=== PATIENT | male | born 1955 | race Caucasian/White ===

== ENCOUNTER → 2016-11-03 | Outpatient (CLI) | payer OTHER ==
[~2016-11-03] MED LIST: ALL300 PO; ALLO300T2 PO; ATEN50TA8 PO; CANA1TAB3 PO; FENO160T PO; GLYB-236 PO; INSU3INJ3 SC; INSUINJ12 INJ; LISI-725 PO; LSN20 PO; NRN600 PO; NTRGSL/4 UT; OMEGCAP2 PO; SIMV40TA2 PO; TNR50 PO; XRL15 PO; XRL20 PO; ZCR40 PO
--- NOTE | 2016-11-03 10:47 | DIAGNOSTIC IMAGING REPORT ---
ULTRASOUND RIGHT VENOUS DOPP LOWER EXT UNILAT CLINICAL HISTORY: Thrombosis of the right lower extremity COMPARISON STUDY: 08/21/2015 FINDINGS: No acute intraluminal thrombus was visualized. There are several areas of incomplete compressibility, most notably at the level of the popliteal vein. The findings are consistent with chronic change. There have been further improvement compared the preceding study. IMPRESSION: 1. No evidence of acute right lower extremity DVT 2. Resolving chronic changes within the deep veins of the right leg. Electronically signed by: Drake Mak M.D. 11/03/2016 10:46 AM Dictated Date/Time: 11/03/2016 10:43 AM
--- NOTE | 2016-11-03 10:57 | DIAGNOSTIC IMAGING REPORT ---
Arterial Doppler right leg ART DOP DUPLEX LW EXT UNI CLINICAL HISTORY: - Embolus TECHNIQUE: Arterial Doppler COMPARISON STUDY: 10/17/2015 FINDINGS: Normal by or triphasic waveforms bilaterally. Ankle brachial indices at all sites are 1.0 or greater IMPRESSION: Normal study Electronically signed by: John Handley M.D. 11/03/2016 10:56 AM Dictated Date/Time: 11/03/2016 10:43 AM
== END | disposition home or self-care (01) ==
LOC: C.ULTR 09:03
PROVIDERS: ATTEND Family Medicine
DX: I82.4Z1 Acute embolism and thrombosis of unspecified deep veins of right distal lower extremity (principal)

== ENCOUNTER 2017-02-09 17:40 | Emergency (ER) | payer OTHER ==
[~2017-02-09] VITALS: Ht 185.4 cm; Wt 122.7 kg
[~2017-02-09 17:40] MED LIST changes: -ALL300 PO; -INSU3INJ3 SC; -LSN20 PO; -NRN600 PO; -TNR50 PO; -XRL20 PO; -ZCR40 PO
[2017-02-09 17:43] VITALS: TEMP 36.7; Ht 185.4 cm; Wt 122.7 kg
[2017-02-09] MEDS ORDERED: TNR50 PO (18:43)
[2017-02-09] MEDS ORDERED: XRL20 PO (18:43)
[2017-02-09] MEDS ORDERED: ALL300 PO (18:43)
[2017-02-09] MEDS ORDERED: NRN600 PO (18:43)
[2017-02-09] MEDS ORDERED: ZCR40 PO (18:43)
[2017-02-09] MEDS ORDERED: LSN20 PO (18:43)
[2017-02-09] MEDS ORDERED: INSU3INJ3 SC (18:43)
--- NOTE | 2017-02-09 18:51 | DIAGNOSTIC IMAGING REPORT ---
LEFT FOOT MIN 3 VIEWS ROUTINE CLINICAL HISTORY: L foot pain pain COMPARISON: None. DISCUSSION: Moderate degenerative change. Heel spur. Cortical margins are intact. There is no evidence for soft tissue swelling. IMPRESSION: Moderate degenerative change. No acute bony pathology. Heel spur. The above report was generated using voice recognition software. It may contain grammatical, syntax or spelling errors. Electronically signed by: John Handley M.D. 02/09/2017 6:50 PM Dictated Date/Time: 02/09/2017 6:49 PM
--- NOTE | 2017-02-09 19:09 | EMERGENCY ROOM VISIT NOTE ---
History Report prepared by Dk: Mckenzie Escobar Under the Supervision of: Dr. Dara Rowland M.D. First contact with patient: 18:02 Chief Complaint: TOE PAIN, INJURY Stated Complaint: TOES TURNING BLACK History of Present Illness The patient is a 61 year old male who presents to the Emergency Room with complaints of worsening left great toe pain since this morning. The patient has a history of diabetes and diabetic neuropathy. He states that he has had chronic burning and numbness in his toes for the past couple of years. This morning the patient developed increased pain in his left great toe. He denies any trauma or injury to the foot. He has some bruising around the area. The patient rates his pain as a 5/10 in severity. He denies any fevers. 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 Source of History: patient Onset: this morning Position: toe(s) Symptom Intensity: 5/10 Quality: burning Timing: worsening Associated Symptoms: + numbness, No fevers Note: Pt denies trauma or injury. Review of Systems See HPI for pertinent positives & negatives. A total of 10 systems reviewed and were otherwise negative. Past Medical & Surgical Medical Problems: (1) DVT (deep venous thrombosis) Family History No significant family history Social History Smoking Status: Former Smoker Drug Use: none Marital Status: single Housing Status: lives with significant other Occupation Status: disabled Current/Historical Medications Scheduled Allopurinol (Allopurinol), 300 MG PO QAM Atenolol (Atenolol), 50 MG PO QAM Canagliflozin (Invokana), 300 MG PO QAM Fenofibrate (Tricor), 160 MG PO QAM Gabapentin (Gabapentin), 600 MG PO BID Glyburide-Metformin (Glyburide/Metformin Hcl), 2 TABS PO BID Insulin Detemir (Levemir Flextouch), 70 UNITS SC BID Lisinopril (Lisinopril), 20 MG PO QPM [place]-3 Fatty Acids (Fish Oil), 1 CAP PO DAILY Rivaroxaban (Xarelto), 20 MG PO DAILY Simvastatin (Simvastatin), 40 MG PO QPM Scheduled PRN Nitroglycerin (Nitrostat), 0.4 MG UT UD PRN for Chest Pain Allergies Coded Allergies: Azithromycin (Verified Allergy, Unknown, HYPERTENSION, RESPIRATORY DISTRESS, 08/21/15) Iodinated Diagnostic Agents (Verified Allergy, Unknown, SKIN COLD, FAINTING, 08/21/15) Penicillins (Verified Allergy, Unknown, HYPERTENSION, SHAKING,HIVES, ) Niacin (Verified Adverse Reaction, Unknown, NOSE BLEED, 08/21/15) Physical Exam Vital Signs Date Time Temp Pulse Resp B/P (MAP) Pulse Ox O2 Delivery O2 Flow Rate FiO2 02/09/17 20:45 85 20 135/78 96 Room Air 02/09/17 20:10 91 22 137/78 95 Room Air 02/09/17 20:09 94 22 137/78 95 Room Air 02/09/17 19:25 91 02/09/17 17:43 36.7 86 18 195/101 96 Room Air Physical Exam Vital signs reviewed. General: Chronically ill-appearing 61 year old male, in no significant distress. HEENT: No scleral icterus, PERRLA, neck supple. Atraumatic. Cardiovascular: Regular rate and rhythm, no extra sounds. Pulmonary: Clear to auscultation bilaterally, normal work of breathing. Abdomen: Obese, soft, nontender, nondistended, positive bowel sounds. Musculoskeletal: Atraumatic, no peripheral edema. Ecchymosis over the dorsum of the left foot over the 2nd and 3rd metatarsals. Neurologic: Patient awake alert and oriented x 3, full strength in all 4 extremities. Cranial nerves 2 through 12 grossly intact. Skin: Warm, dry, no rash Medical Decision & Procedures ER Provider Diagnostic Interpretation: Radiology results as stated below per my review and radiologist interpretation: LEFT FOOT MIN 3 VIEWS ROUTINE CLINICAL HISTORY: L foot pain pain COMPARISON: None. DISCUSSION: Moderate degenerative change. Heel spur. Cortical margins are intact. There is no evidence for soft tissue swelling. IMPRESSION: Moderate degenerative change. No acute bony pathology. Heel spur. The above report was generated using voice recognition software. It may contain grammatical, syntax or spelling errors. Electronically signed by: John Handley M.D. 02/09/2017 6:50 PM Dictated Date/Time: 02/09/2017 6:49 PM Laboratory Results 02/09/17 19:15 Red Blood Count 5.54, Mean Corpuscular Volume 90.3, Mean Corpuscular Hemoglobin 31.6, Mean Corpuscular Hemoglobin Concent 35.0, Mean Platelet Volume 9.9, Neutrophils (%) (Auto) 66.4, Lymphocytes (%) (Auto) 22.7, Monocytes (%) (Auto) 8.4, Eosinophils (%) (Auto) 1.7, Basophils (%) (Auto) 0.6, Neutrophils # (Auto) 4.27, Lymphocytes # (Auto) 1.46, Monocytes # (Auto) 0.54, Eosinophils # (Auto) 0.11, Basophils # (Auto) 0.04 02/09/17 19:15 Test 02/09/17 19:15 02/09/17 19:47 White Blood Count 6.43 K/uL (4.8-10.8) Red Blood Count 5.54 M/uL (4.7-6.1) Hemoglobin 17.5 g/dL (14.0-18.0) Hematocrit 50.0 % (42-52) Mean Corpuscular Volume 90.3 fL (80-100) Mean Corpuscular Hemoglobin 31.6 pg (25-34) Mean Corpuscular Hemoglobin Concent 35.0 g/dl (32-36) Platelet Count 136 K/uL (130-400) Mean Platelet Volume 9.9 fL (7.4-10.4) Neutrophils (%) (Auto) 66.4 % Lymphocytes (%) (Auto) 22.7 % Monocytes (%) (Auto) 8.4 % Eosinophils (%) (Auto) 1.7 % Basophils (%) (Auto) 0.6 % Neutrophils # (Auto) 4.27 K/uL (1.4-6.5) Lymphocytes # (Auto) 1.46 K/uL (1.2-3.4) Monocytes # (Auto) 0.54 K/uL (0.11-0.59) Eosinophils # (Auto) 0.11 K/uL (0-0.5) Basophils # (Auto) 0.04 K/uL (0-0.2) RDW Standard Deviation 43.7 fL (36.4-46.3) RDW Coefficient of Variation 13.3 % (11.5-14.5) Immature Granulocyte % (Auto) 0.2 % Immature Granulocyte # (Auto) 0.01 K/uL (0.00-0.02) Erythrocyte Sedimentation Rate 16 mm/hr (0-14) Anion Gap 9.0 mmol/L (3-11) Est Creatinine Clear Calc Drug Dose 118.1 ml/min Estimated GFR () 106.2 Estimated GFR (Non- 91.6 BUN/Creatinine Ratio 12.8 (10-20) Calcium Level 10.1 mg/dl (8.5-10.1) Total Bilirubin 0.5 mg/dl (0.2-1) Direct Bilirubin 0.1 mg/dl (0-0.2) Aspartate Amino Transf (AST/SGOT) 29 U/L (15-37) Alanine Aminotransferase (ALT/SGPT) 55 U/L (12-78) Alkaline Phosphatase 50 U/L (45-117) C-Reactive Protein 0.41 mg/dl (0-0.29) Total Protein 7.6 gm/dl (6.4-8.2) Albumin 4.1 gm/dl (3.4-5.0) Prothrombin Time 10.9 SECONDS (9.0-12.0) Prothromb Time International Ratio 1.0 (0.9-1.1) Activated Partial Thromboplast Time 28.5 SECONDS (21.0-31.0) Partial Thromboplastin Ratio 1.1 Laboratory results per my review. ED Course 1801: Past medical records reviewed. The patient was evaluated in room B4B. A complete history and physical examination was performed. 2042: I reassessed the patient at this time. He is feeling better and resting comfortably. I discussed the results and treatment plan with the patient. He does not want an ultrasound. I answered all pertaining questions that he had. He expressed understanding and verbalized agreement. The patient will be discharged home. Medical Decision Differential diagnosis: Etiologies such as fracture, dislocation, neurovascular compromise, compartment syndrome, soft tissue injury, as well as others were entertained. This patient was evaluated and appeared to be in no significant distress. IV access was obtained and laboratory work was drawn. XR of the left lower extremity are negative for ankle and foot, were obtained and reveals no evidence of fracture. Patient was placed in a postoperative shoe. He has a follow-up appointment this week. He was advised to watch and wait, the wound begins to spread or worsen, come back to the ER immediately for reevaluation. He will return to the ER for worsening of symptoms or any medical concerns. Medication Reconcilliation Current Medication List: was personally reviewed by me Blood Pressure Screening Patient's blood pressure: Elevated blood pressure Blood pressure disposition: Elevated BP felt to be situational Impression Primary Impression: Contusion of foot, left Scribe Attestation The scribe's documentation has been prepared under my direction and personally reviewed by me in its entirety. I confirm that the note above accurately reflects all work, treatment, procedures, and medical decision making performed by me. Departure Information Dispostion Home / Self-Care Referrals No Doctor, Assigned (PCP) Nyla Sainz D.O. Forms HOME CARE DOCUMENTATION FORM, IMPORTANT VISIT INFORMATION, WORK / SCHOOL INSTRUCTIONS Patient Instructions My [facility] Additional Instructions Diagnosis: Left foot contusion Continue pain medication as prescribed. Walking shoe while on your feet. Elevate your foot as much as possible. Follow-up with your physician this week for reevaluation. Return to the ER for worsening of symptoms or any medical concerns. Problem Qualifiers Primary Impression: Contusion of foot, left Encounter type: initial encounter Qualified Codes: S90.32XA - Contusion of left foot, initial encounter
[2017-02-09 19:26] LABS: BASO % 0.6 %; BASO ABS # 0.04 K/uL (0-0.2); COMPLETE YES; EOS % 1.7 %; IG% 0.2 %; LYMPH % 22.7 %; LYMPH ABS # 1.46 K/uL (1.2-3.4); MEAN CELL VOLUME 90.3 fL (80-100); MEAN CORPUSCULAR HEMOGLOBIN 31.6 pg (25-34); MEAN PLATELET VOLUME 9.9 fL (7.4-10.4); MONO % 8.4 %; NEUT % 66.4 %; PLATELET COUNT 136 K/uL (130-400); RED BLOOD COUNT 5.54 M/uL (4.7-6.1); WHITE BLOOD COUNT 6.43 K/uL (4.8-10.8)
[2017-02-09 19:50] LABS: BUN/CREATININE RATIO 12.8 (10-20); C-REACTIVE PROTEIN 0.41 mg/dl (0-0.29); CALCIUM 10.1 mg/dl (8.5-10.1); CREATININE 0.89 mg/dl (0.60-1.40)
[2017-02-09 20:09] LABS: POTASSIUM 4.1 mmol/L (3.5-5.1)
[2017-02-09 20:11] LABS: PARTIAL THROMBOPLASTIN RATIO 1.1; PROTHROMBIN TIME (PATIENT) 10.9 SECONDS (9.0-12.0)
[2017-02-09 20:45] VITALS: BP 135/78; PULSE 85; O2SAT 96
== END 2017-02-09 20:45 | disposition home or self-care (01) ==
LOC: C.EDB 17:42
DX: S90.32XA Contusion of left foot, initial encounter (principal); X58.XXXA Exposure to other specified factors, initial encounter; Z87.891 Personal history of nicotine dependence

== ENCOUNTER 2017-06-21 10:20 | Emergency (ER) | payer OTHER ==
[~2017-06-21] VITALS: Ht 182.9 cm; Wt 131.0 kg
[~2017-06-21 10:20] MED LIST changes: +ALL300 PO; -ALLO300T2 PO; -ATEN50TA8 PO; +INSU3INJ3 SC; -INSUINJ12 INJ; -LISI-725 PO; +LSN20 PO; +NRN600 PO; -SIMV40TA2 PO; +TNR50 PO; -XRL15 PO; +XRL20 PO; +ZCR40 PO
[2017-06-21 10:22] VITALS: TEMP 36.5; Ht 182.9 cm; Wt 131.0 kg
[2017-06-21] MEDS ORDERED: BACL1TAB PO (11:13)
[2017-06-21] MEDS ORDERED: HYDR-5688 PO (11:15)
[2017-06-21] MEDS ORDERED: LPT40 PO (11:18)
[2017-06-21] MEDS ORDERED: CLC/300 PO (11:18)
--- NOTE | 2017-06-21 11:59 | DIAGNOSTIC IMAGING REPORT ---
CERVICAL SPINE 2 OR 3 VIEWS HISTORY: 61 years-old Male right neck pain acute neck pain with radiation into the right side of the body for 12 days. No reported acute injury. COMPARISON: None available TECHNIQUE: 3 views of the cervical spine FINDINGS: The seventh vertebral segment is not well seen on the lateral view secondary to positioning of the patient's shoulders. Mild intervertebral disc space narrowing with marginal spurring noted at C5-C6. Mild multilevel facet arthrosis. No acute fracture or subluxation identified. No prevertebral soft tissue swelling. IMPRESSION: 1. No acute fracture or subluxation. 2. Mild intervertebral disc space narrowing with marginal endplate spurring at C5-C6. The above report was generated using voice recognition software. It may contain grammatical, syntax or spelling errors. Electronically signed by: Narciso Alonso M.D. 06/21/2017 11:58 AM Dictated Date/Time: 06/21/2017 11:57 AM
--- NOTE | 2017-06-21 12:03 | EMERGENCY ROOM VISIT NOTE ---
ED Visit Note First contact with patient: 11:08 CHIEF COMPLAINT: Head pain radiating to the neck and shoulder on the right HISTORY OF PRESENT ILLNESS: This 61-year-old male patient presents to the emergency department, ambulatory, with his family, complaining of pain in the back of the head on the right side, radiating down the right side of his neck, and into his right shoulder 12 days. The patient states he is not doing any activity, and awoke with the pain 12 days ago. He did see his PCP 5 days ago, was started on baclofen. He has been taking 20 mg of baclofen 3 times daily, and states that has helped with the shoulder pain, but has not helped with the pain higher in the head. The patient states the pain is very intermittent, but sharp and throbbing when it occurs. He rates at 10/10. The patient has taken occasional Advil and hydrocodone without relief of the pain. He does use a memory some pillow, and states he sleeps on his side as well as his back overnight. Sleeping on the right side worsens the pain, looking towards the right worsens the pain, and raising his arm in abduction increases pain as well. The patient does not have a history of previous neck problems. The patient denies numbness and tingling. The patient denies chest pain or shortness of breath. There was no head injury and or loss of consciousness. The patient denies headache, blurred vision, abdominal pain, nausea, or vomiting. The patient denies change in personality. REVIEW OF SYSTEMS: A 10 system review of systems was completed with positives and pertinent negatives listed in the HPI. ALLERGIES: Niacin, azithromycin, penicillin, iodine MEDICATIONS: Allopurinol, atenolol, atorvastatin, Baclofen, Invokana, Clindamycin, Tricor, Gabapentin, Glyburide-Metformin, [place], Levemit, Lisinopril , Nitro, Fish Oil, Xarelto, Simvastatin PMH: Diabetes, DVT SOCIAL HISTORY: The patient lives locally with family. He denies drug, alcohol , tobacco use. PHYSICAL EXAM: VITALS: Vitals are noted on the nurse's note and reviewed by myself. Vital signs stable. GENERAL: This is a 61-year-old white male, in no acute distress, nondiaphoretic, well-developed well-nourished. SKIN: Capillary reflex less than 2 seconds. HEENT: Normocephalic. PERRLA. EOMI. Nares patent. Mucous membranes moist. Neck is supple without nuchal rigidity. Cervical spine is not tender to palpation. The patient does have tenderness of the paraspinal muscles and trapezius muscle on the right. There is no lymphadenopathy. MUSCULOSKELETAL: The patient has full range of motion of the bilateral arms. Strength 5/5 of the bilateral upper extremities. The patient has tenderness with rotation to the right of the neck. NEURO: Patient was alert and oriented to person place and time. Normal sensation to light and sharp touch. No focal neurologic deficits. RADIOLOGY: CERVICAL SPINE 2 OR 3 VIEWS HISTORY: 61 years-old Male right neck pain acute neck pain with radiation into the right side of the body for 12 days. No reported acute injury. COMPARISON: None available TECHNIQUE: 3 views of the cervical spine FINDINGS: The seventh vertebral segment is not well seen on the lateral view secondary to positioning of the patient's shoulders. Mild intervertebral disc space narrowing with marginal spurring noted at C5-C6. Mild multilevel facet arthrosis. No acute fracture or subluxation identified. No prevertebral soft tissue swelling. IMPRESSION: 1. No acute fracture or subluxation. 2. Mild intervertebral disc space narrowing with marginal endplate spurring at C5-C6. The above report was generated using voice recognition software. It may contain grammatical, syntax or spelling errors. Electronically signed by: Narciso Alonso M.D. 06/21/2017 11:58 AM Dictated Date/Time: 06/21/2017 11:57 AM EMERGENCY DEPARTMENT COURSE: I examined the patient. He does present today with symptoms consistent with trapezius muscle strain with spasms. The patient has had no imaging performed, and states the baclofen he has been taking for 5 days has not significantly helped. There was no injury, and the patient states he awoke spontaneously with the pain after sleeping. X-ray of the cervical spine was performed and negative for acute injury. I do feel that the patient would benefit from muscle relaxers, and while he has been on Baclofen, I offered to switch him to a different medication in case it helps more than the Baclofen. I do not feel terribly comfortable at this time prescribing NSAIDs or steroids due to the patient's chronic use of anticoagulants due to DVT and DM. I encouraged him to consider massage, try the Flexeril, and follow-up with his PCP later this week for re-evaluation and possible PT referral. The patient and his were in agreement with this assessment and plan. The patient was discharged home in good condition. I attest that I have personally reviewed the patient's current medication list. Blood Pressure Screening: Patient was found to have a slightly elevated blood pressure due to circumstances. I do not believe that the patient requires hypertension monitoring. DIFFERENTIAL DIAGNOSIS: Cervicalgia, muscular strain, muscle spasms, fracture, disc protrusion, radiculopathy, malignancy, and others DIAGNOSIS: Trapezius strain with spasms Current/Historical Medications Scheduled Allopurinol (Allopurinol), 300 MG PO QAM Atenolol (Atenolol), 50 MG PO QAM Atorvastatin (Atorvastatin Calcium), 1 TAB PO DAILY Canagliflozin (Invokana), 300 MG PO QAM Clindamycin HCl (Clindamycin HCl), 2 CAP PO UD Fenofibrate (Tricor), 160 MG PO QAM Gabapentin (Gabapentin), 600 MG PO BID Glyburide-Metformin (Glyburide/Metformin Hcl), 2 TABS PO BID Insulin Detemir (Levemir Flextouch), 70 UNITS SC BID Lisinopril (Lisinopril), 20 MG PO QPM [place]-3 Fatty Acids (Fish Oil), 1 CAP PO DAILY Rivaroxaban (Xarelto), 20 MG PO DAILY Simvastatin (Simvastatin), 40 MG PO QPM Scheduled PRN Baclofen (Lioresal), 10-20 MG PO TID PRN for spasms Cyclobenzaprine Hcl (Flexeril), 10 MG PO TID PRN for Muscle Spasms Hydrocodone/Acetaminophen 5MG/325MG ([place] 5MG/325MG), 1 TABLET PO UD PRN for Pain Nitroglycerin (Nitrostat), 0.4 MG UT UD PRN for Chest Pain Allergies Coded Allergies: Azithromycin (Verified Allergy, Unknown, HYPERTENSION, RESPIRATORY DISTRESS, 06/21/17) Iodinated Diagnostic Agents (Verified Allergy, Unknown, SKIN COLD, FAINTING, 06/21/17) Oxycodone (Unverified Allergy, Unknown, chest pain, 06/21/17) Penicillins (Verified Allergy, Unknown, HYPERTENSION, SHAKING,HIVES, 06/21) Niacin (Verified Adverse Reaction, Unknown, NOSE BLEED, 06/21/17) Vital Signs Date Time Temp Pulse Resp B/P (MAP) Pulse Ox O2 Delivery O2 Flow Rate FiO2 06/21/17 12:20 74 18 150/93 96 Room Air 06/21/17 10:22 36.5 72 18 157/79 95 Room Air Departure Information Impression Primary Impression: Trapezius muscle strain Additional Impression: Trapezius muscle spasm Dispostion Home / Self-Care Condition GOOD Prescriptions Cyclobenzaprine Hcl (FLEXERIL) 10 Mg Tab 10 MG PO TID Y for Muscle Spasms, #12 TAB Prov: Alison Hood PA-C 06/21/17 Referrals Nyla Sainz D.O. (PCP) Patient Instructions ED Spasm Muscle, My [facility] Additional Instructions You have been treated in the Emergency Department for trapezius muscle strain with spasms. You have been prescribed Flexeril (cyclobenzaprine) 1 tabs orally, three times per day. Do NOT exceed 30 mg (3 tabs) per day. Take your first dose at bedtime as it can make you drowsy. Always take all medications as prescribed. This is to be taken IN PLACE OF the Baclofen you are already on. For pain control, you can use the following [id number] medicines (if >12 yo): - Regular strength (325mg/tab) Tylenol (acetaminophen) 2 tabs every 4-6 hours as needed. Do not exceed 12 tablets in a 24 hour period. Avoid taking more than 3 grams (3000 mg) of Tylenol per day. This includes any other sources of acetaminophen you may take on a regular basis. - Regular strength (200 mg/tab) Advil (ibuprofen) 1-2 tabs every 4-6 hours as needed. Do not exceed a dose of 2400 mg per day and only as directed by your PCP. If this is an acute injury, ice can be applied to the area of pain for the first 3 days to help decrease pain and inflammation. After the first 3 days, a heating pad can be used over the area for continued soothing relief. As discussed, you should consider a massage to help with the spasms. You should also consider Physical Therapy to help decrease inflammation and pain in your neck and shoulder. You should schedule a follow-up appointment in 2-3 days with your Primary Care Provider for further evaluation and treatment of your neck pain. Return to the Emergency Department if your current symptoms worsen despite treatment course outlined above, or if you develop any of the following symptoms : intractable pain despite aforementioned treatment course, facial droop, slurred speech, unilateral weakness, or worsening of her current symptoms. Problem Qualifiers Primary Impression: Trapezius muscle strain Encounter type: initial encounter Laterality: right Qualified Codes: S46.811A - Strain of other muscles, fascia and tendons at shoulder and upper arm level, right arm, initial encounter
[2017-06-21 12:20] VITALS: BP 150/93; PULSE 74; O2SAT 96
[2017-06-21] MEDS ORDERED: CYCL10TA6 PO (12:24)
== END 2017-06-21 12:34 | disposition home or self-care (01) ==
LOC: C.EDB 10:21 → C.EDD 12:34
DX: S46.811A Strain of other muscles, fascia and tendons at shoulder and upper arm level, right arm, initial encounter (principal); X58.XXXA Exposure to other specified factors, initial encounter; M62.838 Other muscle spasm; E11.9 Type 2 diabetes mellitus without complications; Z86.718 Personal history of other venous thrombosis and embolism; Z79.01 Long term (current) use of anticoagulants; Z79.4 Long term (current) use of insulin

== ENCOUNTER 2021-11-18 06:25 | Observation (INO) ==
--- NOTE | 2021-10-15 12:56 | PAT Medication Instructions ---
Medication Instructions Date of Service October 15, 2021 Home Medications Medication Instructions Recorded loratadine 10 mg tablet (Claritin) 10 mg PO DAILY PRN #30 tab 08/17/19 metformin 1,000 mg tablet 1,000 mg PO BID #180 tab 02/04/21 BD Ultra-Fine Short Pen Needle 31 #500 ea NS 04/09/21 gauge x 5/16" (pen needle, diabetic) pregabalin 300 mg capsule (Lyrica) 300 mg PO BID 90 Days #180 cap 06/26/21 flash glucose sensor (FreeStyle #2 ea 07/22/21 Moe 2 Sensor) allopurinol 300 mg tablet 300 mg PO QAM atenolol 50 mg tablet 50 mg PO QAM atorvastatin 40 mg tablet 40 mg PO QPM canagliflozin 300 mg tablet 300 mg PO QAM cyanocobalamin (vitamin B-12) 1,000 mcg tablet 1,000 mcg PO QAM fenofibrate 160 mg tablet 160 mg PO QAM lisinopril 20 mg tablet 20 mg PO QPM omega 0-gkx-idi-fish oil 1,000 mg (120 mg-180 mg) capsule (Fish Oil) 1 cap PO BID rivaroxaban 20 mg tablet (Xarelto) 20 mg PO QAM hydrocodone 10 mg-acetaminophen 325 mg tablet ([place]) 0.5 tab PO BID PRN loratadine 10 mg tablet (Claritin) 10 mg PO DAILY PRN nitroglycerin 0.4 mg sublingual tablet (Nitrostat) 0.4 mg SUBLINGUAL UD PRN metformin 1,000 mg tablet 1,000 mg PO BID pantoprazole 40 mg tablet,delayed release 40 mg PO BID pregabalin 300 mg capsule (Lyrica) 300 mg PO BID albuterol sulfate 90 mcg/actuation aerosol inhaler 2 inh INHALATION Q4H PRN clindamycin HCl 300 mg capsule 600 mg PO UD PRN duloxetine 60 mg capsule,delayed release 60 mg PO QPM insulin NPH isoph U-100 human 100 unit/mL (3 mL) subcutaneous pen (Novolin N Flexpen) 80 unit SUBCUT BID insulin regular human 100 unit/mL (3 mL) subcutaneous pen (Novolin R Flexpen) 18 unit SUBCUT TIDM MDD 80 units Continue as directed nitroglycerin 0.4 mg sublingual tablet (Nitrostat) 0.4 mg SUBLINGUAL UD PRN (if needed) clindamycin HCl 300 mg capsule 600 mg PO UD PRN (prior to dental procedures) ASK your prescriber and surgeon rivaroxaban 20 mg tablet (Xarelto) 20 mg PO QAM (in order for spinal anesthesia, Rivaroxaban/Xarelto needs to be stopped 72 hours/3 days before surgery. Please check if okay with doctor that prescribes this to you) STOP taking 2 weeks before surgery (or as soon as possible if surgery is within 2 weeks) omega 0-mwk-jaz-fish oil 1,000 mg (120 mg-180 mg) capsule (Fish Oil) 1 cap PO BID STOP taking 48 hours before surgery fenofibrate 160 mg tablet 160 mg PO QAM DO NOT take the morning of surgery canagliflozin 300 mg tablet 300 mg PO QAM cyanocobalamin (vitamin B-12) 1,000 mcg tablet 1,000 mcg PO QAM loratadine 10 mg tablet (Claritin) 10 mg PO DAILY PRN metformin 1,000 mg tablet 1,000 mg PO BID insulin regular human 100 unit/mL (3 mL) subcutaneous pen (Novolin R Flexpen) 18 unit SUBCUT TIDM MDD 80 units Take morning of surgery With a small sip of water, OTHERWISE NOTHING TO EAT OR DRINK AFTER MIDNIGHT: allopurinol 300 mg tablet 300 mg PO QAM atenolol 50 mg tablet 50 mg PO QAM hydrocodone 10 mg-acetaminophen 325 mg tablet ([place]) 0.5 tab PO BID PRN (okay to take up to 4 hours prior to surgery if needed) pantoprazole 40 mg tablet,delayed release 40 mg PO BID pregabalin 300 mg capsule (Lyrica) 300 mg PO BID albuterol sulfate 90 mcg/actuation aerosol inhaler 2 inh INHALATION Q4H PRN (use if needed; please bring rescue inhaler with you to hospital day of surgery if possible) Take evening before surgery atorvastatin 40 mg tablet 40 mg PO QPM lisinopril 20 mg tablet 20 mg PO QPM hydrocodone 10 mg-acetaminophen 325 mg tablet ([place]) 0.5 tab PO BID PRN (if needed) loratadine 10 mg tablet (Claritin) 10 mg PO DAILY PRN (if needed) metformin 1,000 mg tablet 1,000 mg PO BID pantoprazole 40 mg tablet,delayed release 40 mg PO BID pregabalin 300 mg capsule (Lyrica) 300 mg PO BID albuterol sulfate 90 mcg/actuation aerosol inhaler 2 inh INHALATION Q4H PRN (if needed) duloxetine 60 mg capsule,delayed release 60 mg PO QPM insulin NPH isoph U-100 human 100 unit/mL (3 mL) subcutaneous pen (Novolin N Flexpen) 80 unit SUBCUT BID insulin regular human 100 unit/mL (3 mL) subcutaneous pen (Novolin R Flexpen) 18 unit SUBCUT TIDM MDD 80 units Insulin Dependent Diabetic Patients * Test your blood sugar the morning of surgery * If Blood Sugar is GREATER THAN 150, take HALF of your regular dose of: insulin NPH isoph U-100 human 100 unit/mL (3 mL) subcutaneous pen (Novolin N Flexpen) take 40 units * If Blood Sugar is LESS THAN 150, DO NOT TAKE ANY: insulin NPH isoph U-100 human 100 unit/mL (3 mL) subcutaneous pen (Novolin N Flexpen) Other Notes If you have any questions please call us at [phone] or [phone] or [phone] or [phone]
--- NOTE | 2021-10-20 09:48 | Anesthesiology Consultation ---
Date of Service October 20, 2021 Assessment & Plan (1) Encounter for pre-operative examination: - check BSG am DOS. - Pt reports upcoming pre-op appointment with PCP 10/23. - neurology office visit 08/11/2021 [place]: "...Diabetic peripheral neuropathy and left facial postherpetic neuralgia...clinically stable with Cymbalta and Lyrica, may continue with these medications as prescribed...continue to follow with his PCP and the [facility] diabetes clinic for ongoing management of his diabetes mellitus, appears to be well controlled. Planning on possible left total knee arthroplasty, I do not anticipate that this surgical procedure would have a direct impact on his postherpetic neuralgia or peripheral neuropathy management..." - COVID screening: Per assessment on 10/20/2021: Travel screen negative, no known COVID-19 positive contacts or current COVID-19 related symptoms in past 2 weeks. Patient vaccinated. Surgeon arranging preop COVID testing, scheduled 11/14/2021. Awaiting results. Chart Review Chart Review: Pending: Refer to Additional Notes / Consult section and Patient seen in Pre Admission Testing Teaching & Discussion Pre-Anesthesia Teaching/Discussion Notes: Instructed NPO after midnight before surgery, except medications with 15 cc of water. Medication instructions provided according to the PAT guidelines. History Surgery Operation Date: 11/18/21 07:15 Proposed Procedures p Left Total Knee Arthroplasty - Erick Vásquez DO Height/Weight Height: 6 ft Weight: 144.1 kg Allergies Allergy/AdvReac Type Severity Reaction Status Date / Time azithromycin Allergy Unknown RESPIRATORY Verified 10/15/21 12:04 DISTRESS Iodinated Contrast Media Allergy Unknown SKIN COLD, Verified 10/15/21 12:04 FAINTING oxycodone Allergy Unknown chest pain Verified 10/15/21 12:04 Penicillins Allergy Unknown HYPERTENSION, Verified 10/15/21 12:04 SHAKING,HIVES niacin AdvReac Unknown NOSE BLEED Verified 10/15/21 12:04 nortriptyline AdvReac Unknown STOMACH Verified 10/15/21 12:04 PAINS, BLOODY STOOLS Medications Home Medications Medication Instructions Recorded Confirmed Last Taken allopurinol 300 mg tablet 300 mg PO QAM 08/21/18 10/15/21 08/30/18 06:00 atenolol 50 mg tablet 50 mg PO QAM 08/21/18 10/15/21 08/30/18 06:00 atorvastatin 40 mg tablet 40 mg PO QPM 08/21/18 10/15/21 08/30/18 14:30 canagliflozin 300 mg tablet 300 mg PO QAM 08/21/18 10/15/21 08/30/18 06:00 cyanocobalamin (vitamin B-12) 1,000 mcg PO QAM 08/21/18 10/15/21 08/30/18 06:00 1,000 mcg tablet fenofibrate 160 mg tablet 160 mg PO QAM 08/21/18 10/15/21 08/30/18 06:00 lisinopril 20 mg tablet 20 mg PO QPM 08/21/18 10/15/21 08/30/18 14:30 omega 1-cih-zet-fish oil 1,000 mg 1 cap PO BID 08/21/18 10/15/21 08/30/18 14:30 (120 mg-180 mg) capsule (Fish Oil) rivaroxaban 20 mg tablet (Xarelto) 20 mg PO QAM 08/21/18 10/15/21 08/30/18 06:00 hydrocodone 10 mg-acetaminophen 0.5 tab PO BID PRN tab 02/21/19 10/15/21 Unknown 325 mg tablet ([place]) loratadine 10 mg tablet (Claritin) 10 mg PO DAILY PRN #30 tab 08/17/19 10/15/21 Unknown nitroglycerin 0.4 mg sublingual 0.4 mg SUBLINGUAL UD PRN 03/20/20 10/15/21 Unknown tablet (Nitrostat) metformin 1,000 mg tablet 1,000 mg PO BID #180 tab 02/04/21 10/15/21 Unknown pantoprazole 40 mg tablet,delayed 40 mg PO BID tab 02/25/21 10/15/21 Unknown release BD Ultra-Fine Short Pen Needle 31 #500 ea NS 04/09/21 09/08/21 Unknown gauge x 5/16" (pen needle, diabetic) pregabalin 300 mg capsule (Lyrica) 300 mg PO BID 90 Days #180 cap 06/26/21 10/15/21 Unknown flash glucose sensor (FreeStyle #2 ea 07/22/21 09/08/21 Unknown Moe 2 Sensor) albuterol sulfate 90 mcg/actuation 2 inh INHALATION Q4H PRN 10/15/21 10/15/21 Unknown aerosol inhaler clindamycin HCl 300 mg capsule 600 mg PO UD PRN 10/15/21 10/15/21 Unknown duloxetine 60 mg capsule,delayed 60 mg PO QPM 10/15/21 10/15/21 Unknown release insulin NPH isoph U-100 human 100 80 unit SUBCUT BID 10/15/21 10/15/21 Unknown unit/mL (3 mL) subcutaneous pen (Novolin N Flexpen) insulin regular human 100 unit/mL 18 unit SUBCUT TIDM MDD 80 units 10/15/21 10/15/21 Unknown (3 mL) subcutaneous pen (Novolin R Flexpen) Past Medical History Medical History (Updated 10/20/21 @ 14:33 by La Irwin PA-C) COPD (chronic obstructive pulmonary disease) Stable Diabetes IDDM DVT (deep venous thrombosis) RLE (2015) Gout HX Hearing loss Hyperlipidemia Hypertension controlled, stable per pt Neuropathy Pancreatic cyst Under surveillance Patient states that this is the reason for PPI Post herpetic neuralgia L eye-drops TIA (transient ischemic attack) 2002 in setting of severe hyperglycemia per pt Patient denies h/o seizures, heart attack, heart failure, or blood transfusions. Exercise / Class Metabolic Activity III < 4 Walking/Shop/Light housework (SOB with activity, denies chest pain) Past Family History Family History Mother Diabetes Stroke Hypertension Father Hypertension Other Family history non-contributory Past Surgical History Surgical History (Updated 10/20/21 @ 10:15 by La Irwin PA-C) History of arthroscopy of knee L History of cardiac cath 10 YR AGO > NO STENTS History of colonoscopy History of endoscopy History of knee replacement RIGHT Past Anesthesia History No Hx of Anesthesia Complications and No Family Hx of Anesthesia Complications History of PONV No Hx of PONV and No Hx of Motion Sickness Social History Smoking Status: Never smoker Do You Dip or Chew Tobacco: No Hx Alcohol Use: Yes Alcohol type: beer Alcohol Intake Frequency Comment: MAYBE 2 BEERS A MONTH Hx Substance Use: No Review of Systems Cough and wheezing chronic, stable without change or worsening per pt, last rescue inhaler use 3 weeks ago. He reports onset of nasal congestion 2 days ago, denies worsening or change in chronic cough, shortness of breath or dyspnea on exertion. Denies pharyngitis. He was advised to follow-up with PCP. Patient denies chest pain, snoring, witnessed apneas, fever, chills, or palpitations. Physical Exam Vital Signs Vitals BP 120/71 P 79 TEMP 99.0 SP02 95% on RA RESP 16 Physical Full cervical extension range of motion without pain Full TMJ range of motion TMD 3.5 finger breaths Mallampati Score 2 Dentition: intact, one chipped left upper front tooth; missing multiple teeth upper and lower bilat; denies loose teeth, caps/crowns, implants or bridges Lungs: normal respiratory effort. Clear throughout to auscultation, no adventitious breath sounds Cardiac: regular rate and rhythm, no murmurs noted Carotid arteries: negative bruit bilat Lab Results Anesthesia Preop Results Results Anesthesia Widget: PT 12.3 Seconds (9.0-12.0) H 10/20/21 PTT 30.7 Seconds (21.0-31.0) 10/20/21 INR 1.2 (0.9-1.1) H 10/20/21 HA1c 7.0 % (4.5-5.6) H 10/20/21 Urine Color Yellow 10/20/21 Urine Appearance Clear (Clear) 10/20/21 Urine pH 5.0 (4.5-7.5) 10/20/21 Urine Specific [place] 1.037 (1.000-1.030) H 10/20/21 Urine Protein Negative (Negative) 10/20/21 Urine Glucose (UA) 3+ (Negative) H 10/20/21 Urine Ketones Negative (Negative) 10/20/21 Urine Blood Negative (Negative) 10/20/21 Urine Nitrite Negative (Negative) 10/20/21 Urine Bilirubin Negative (Negative) 10/20/21 Urine Urobilinogen Negative (Negative) 10/20/21 Urine Leukocyte Esterase Negative (Negative) 10/20/21 Blood Type A Positive 10/20/21 Antibody Screen NEGATIVE 10/20/21 Testing Laboratory Results 10/08/2021 WBC: 6.8 H/H: 11 PLATELETS: 315 SODIUM: 140 POTASSIUM: 3.9 CHLORIDE: 107 CO2: 27 BUN: 10 CREATININE: 0.8 GLUCOSE: 148 Albumin: 3.7 Electrocardiogram Date: 10/20/21 NSR, rate 74 bpm Chest X-Ray Date: 10/20/21 The cardiac silhouette is normal in size. Mild calcified plaque within the aortic knob, unchanged. The lungs are clear. No pleural effusions. No pneumothorax. Old, healed right anterior rib fractures. Mild to moderate degenerative disc disease within the thoracic spine. IMPRESSION: No acute process.
--- NOTE | 2021-10-27 08:44 | History & Physical Report ---
Date of Service October 27, 2021 date of surgery: 11/18/21 Procedure: Left Total Knee Arthroplasty Surgeon: Erick Vásquez Assessment & Plan (1) Arthritis of knee, left: Plan: Risks and benefits of the procedure discussed in detail today, patient would like to proceed with a left total knee replacement at [facility] as scheduled. will obtain medical clearance from Dr Lomeli prior to surgery as well as obtain PATs at [facility]. Will resume his Xarelto post op, f/u 2 weeks post op for routine post-operative care and x-ray, sooner if having any problems. He would like to do OPPT at [facility]. At this point in time, has failed conservative measures and would like to proceed with surgical intervention. He does receive [place] from Dr Lomeli presently, we discussed with patient and he will cont to receive his post op pain meds from him as well, will fax recommendations that we typically prescribe Oxycodone 5-10 mg po q 6-8 hours. The risks and benefits have been discussed including, but not limited to, risk of infection, nerve injury, stiffness, loss of motion, failure to improve, etc. Reasonable outcomes and options of treatment were discussed. An explanation of appropriate alternatives to the procedure that may be advantageous were di scussed and their risks and benefits, as well as the risks and benefits of not proceeding with treatment. I offered to answer any additional inquiries concerning the treatment involved. All the patient's questions were answered. The patient is agreeable, understanding of the treatment plan and alternatives, and wishes to proceed with the treatment plan. History of Present Illness Chief Complaint: left knee pain Primary Care Provider: Lalo Lomeli DO Reza is a 66 year old male who complains of left knee pain, presents for pre- op evaluation prior to a left total knee replacement by Dr Vásquez at [facility]. He complains of pain, decreased range of motion, instability and stiffness in his left knee. Currently the patient states that the symptoms are moderate-severe and rated as 8/10. The pain is described as aching, sharp and throbbing. His symptoms are aggravated by ascending stairs, daily activities, first steps while awake walking. He is on Xarelto and unable to take NSAID. Prior pain medications include [place], he has been treated with previous visco injections in the past without much relief. he has had prior left knee scope by Dr Vásquez approximately 7-8 years ago. Allergies Allergy/AdvReac Type Severity Reaction Status Date / Time azithromycin Allergy Unknown RESPIRATORY Verified 10/15/21 12:04 DISTRESS Iodinated Contrast Media Allergy Unknown SKIN COLD, Verified 10/15/21 12:04 FAINTING oxycodone Allergy Unknown chest pain Verified 10/15/21 12:04 Penicillins Allergy Unknown HYPERTENSION, Verified 10/15/21 12:04 SHAKING,HIVES niacin AdvReac Unknown NOSE BLEED Verified 10/15/21 12:04 nortriptyline AdvReac Unknown STOMACH Verified 10/15/21 12:04 PAINS, BLOODY STOOLS Home Medications Medication Instructions Recorded Confirmed Type allopurinol 300 mg tablet 300 mg PO QAM 08/21/18 10/15/21 History atenolol 50 mg tablet 50 mg PO QAM 08/21/18 10/15/21 History atorvastatin 40 mg tablet 40 mg PO QPM 08/21/18 10/15/21 History canagliflozin 300 mg tablet 300 mg PO QAM 08/21/18 10/15/21 History cyanocobalamin (vitamin B-12) 1,000 mcg PO QAM 08/21/18 10/15/21 History 1,000 mcg tablet fenofibrate 160 mg tablet 160 mg PO QAM 08/21/18 10/15/21 History lisinopril 20 mg tablet 20 mg PO QPM 08/21/18 10/15/21 History omega 0-cco-qsw-fish oil 1,000 mg 1 cap PO BID 08/21/18 10/15/21 History (120 mg-180 mg) capsule (Fish Oil) rivaroxaban 20 mg tablet (Xarelto) 20 mg PO QAM 08/21/18 10/15/21 History hydrocodone 10 mg-acetaminophen 0.5 tab PO BID PRN tab 02/21/19 10/15/21 History 325 mg tablet ([place]) loratadine 10 mg tablet (Claritin) 10 mg PO DAILY PRN #30 tab 08/17/19 10/15/21 Rx nitroglycerin 0.4 mg sublingual 0.4 mg SUBLINGUAL UD PRN 03/20/20 10/15/21 History tablet (Nitrostat) metformin 1,000 mg tablet 1,000 mg PO BID #180 tab 02/04/21 10/15/21 Rx pantoprazole 40 mg tablet,delayed 40 mg PO BID tab 02/25/21 10/15/21 History release BD Ultra-Fine Short Pen Needle 31 #500 ea NS 04/09/21 09/08/21 Rx gauge x 5/16" (pen needle, diabetic) pregabalin 300 mg capsule (Lyrica) 300 mg PO BID 90 Days #180 cap 06/26/21 10/15/21 Rx flash glucose sensor (FreeStyle #2 ea 07/22/21 09/08/21 Rx Moe 2 Sensor) albuterol sulfate 90 mcg/actuation 2 inh INHALATION Q4H PRN 10/15/21 10/15/21 History aerosol inhaler clindamycin HCl 300 mg capsule 600 mg PO UD PRN 10/15/21 10/15/21 History duloxetine 60 mg capsule,delayed 60 mg PO QPM 10/15/21 10/15/21 History release insulin NPH isoph U-100 human 100 80 unit SUBCUT BID 10/15/21 10/15/21 History unit/mL (3 mL) subcutaneous pen (Novolin N Flexpen) insulin regular human 100 unit/mL 18 unit SUBCUT TIDM MDD 80 units 10/15/21 10/15/21 History (3 mL) subcutaneous pen (Novolin R Flexpen) Past Med/Surg History Medical History COPD (chronic obstructive pulmonary disease) Stable Diabetes IDDM DVT (deep venous thrombosis) RLE (2015) Gout HX Hearing loss Hyperlipidemia Hypertension controlled, stable per pt Neuropathy Pancreatic cyst Under surveillance Patient states that this is the reason for PPI Post herpetic neuralgia L eye-drops TIA (transient ischemic attack) 2002 in setting of severe hyperglycemia per pt Surgical History History of arthroscopy of knee L History of cardiac cath 10 YR AGO > NO STENTS History of colonoscopy History of endoscopy History of knee replacement RIGHT Family History Mother Diabetes Stroke Hypertension Father Hypertension Other Family history non-contributory Social History Smoking Status: Never smoker Hx Alcohol Use: Yes Alcohol type: beer Hx Substance Use: No Preferred Language: Montenegrin Communication Ability: Effective 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 Beliefs That Will Affect Care: None marital status: Current Living Situation: Spouse current occupational status: retired and disabled Feels Safe at Home: Yes Assistive Devices: Cane and Glasses Review of Systems Review of Systems: All systems reviewed & are unremarkable except as noted in HPI & below Constitutional: no fever, no chills and no sweats Respiratory: no cough and no dyspnea Cardiovascular: no chest pain, no dyspnea and no orthopnea Gastrointestinal: no abdominal pain, no nausea and no vomiting Musculoskeletal: as per Subjective / HPI Physical Exam Physical Exam: HT: 6ft WT: 144kg BP: 128/74 Constitutional: WD/WN, vitals as above no acute distress Respiratory: normal respiratory effort, lungs clear to auscultation no respiratory distress, no labored breathing and does not use accessory muscles Cardiovascular: RRR, no murmur, no edema Gastrointestinal (Abdomen): normal bowel sounds, soft, nontender, no hepatosplenomegaly Musculoskeletal: Knee: + knee abnormal to inspection (LEFT KNEE), + effusion (+1 effusion), + surgical incision (well healed portals), + limited ROM of knee (ROM 0/3/110), + knee ROM with crepitation, + joint line tenderness (medial joint line) and + Elvis's sign positive; no deformity, no skin erythema, no ecchymosis, no valgus laxity, no varus laxity, anterior drawer test negative, Blaze's sign negative and pivot shift test negative Results & Data Results & Data ([facility]) Diagnostic Findings Left Knee X-ray: left knee series confirm degenerative changes to the left knee, greatest medial compartments and patellofemoral joint, showing joint space narrowing, osteophyte formation and subchondral sclerosis. no acute bony pathology noted.
[~2021-11-18 06:25] MED LIST changes: +ACETAMINOPHEN 500 MG TAB PO SCH; -ALL300 PO; +BUPIVACAINE 0.5 % 5 MG/1 ML PF 10ML VIAL ONE; -CANA1TAB3 PO; +CeleBREX 200 MG CAP PO SCH; +EPINEPHrine INJ 1 MG/ML AMP ONE; +FAMOTIDINE 20 MG TAB PO SCH; -FENO160T PO; +GABAPENTIN 300 MG CAP PO SCH; -GLYB-236 PO; -INSU3INJ3 SC; +LR 500ML BOLUS, THEN 15ML/HR IV SCH; -LSN20 PO; +METOCLOPRAMIDE HCL 10 MG TABLET PO SCH; -NRN600 PO; -NTRGSL/4 UT; -OMEGCAP2 PO; +ROPIVACAINE 0.5% 5 MG/ML 30 ML VIAL ONE; +ROPIVACAINE 0.5% HCL/PF 150 MG, BUPIVACAINE 0.75% MPF 20 ML, EPINEPHrine 30MG/30ML (OR ... INSTIL SCH; -TNR50 PO; +TRANEXAMIC ACID 1,000 MG **IV Intra-op IV SCH; +TRANEXAMIC ACID 1,000 MG **IV Pre-op IV SCH; +VANCOMYCIN HCL 2,000 MG in SODIUM CHLORIDE 0.9% 500 ML IV SCH; -XRL20 PO; -ZCR40 PO; +dexAMETHasone 4 MG TAB PO SCH
--- NOTE | 2021-11-18 07:24 | History & Physical Bridge Note ---
Date of Service November 18, 2021 History & Physical Bridge Note I have examined the patient, reviewed the History & Physical and in the interval since the performance of the History & Physical I have noted the following changes of clinical significance: no changes noted
[2021-11-18 07:37] LABS: Basophils # (auto) 0.09 K/uL (0-0.2); Eosinophils # (auto) 0.48 K/uL (0-0.5); Eosinophils % (auto) 5.5 %; Hematocrit (blood only) 35.9 % (42-52); Immature Granulocytes # (auto) 0.03 K/uL (0.00-0.02); Immature Granulocytes % (auto) 0.3 %; Lymphocytes # (auto) 2.32 K/uL (1.2-3.4); Lymphocytes % (auto) 26.5 %; Mean Corpuscular Hemoglobin 25.1 pg (25-34); Mean Corpuscular Volume 81.8 fL (80-100); Monocytes # (auto) 0.73 K/uL (0.11-0.59); Monocytes % (auto) 8.3 %; Neutrophils % (auto) 58.4 %; Platelet Count 320 K/uL (130-400); RDW Standard Deviation 53.6 fL (36.4-46.3); Red Blood Count 4.39 M/uL (4.7-6.1); White Blood Count 8.75 K/uL (4.8-10.8)
[2021-11-18 07:41] LABS: Mean Corpuscular Hgb Conc 30.6 g/dL (32-36)
[2021-11-18] MEDS ORDERED: ORTHO JOINT ANESTHETIC ONE (08:07)
[2021-11-18] MEDS ORDERED: fentaNYL citrate 100 MCG/2 ML VIAL ONE (08:10)
[2021-11-18] MEDS ORDERED: PROPOFOL IV EMULSION 10 MG/ML 20 ML VIAL IV ONE ×2 (08:10→09:53)
[2021-11-18] MEDS ORDERED: MIDAZOLAM HCL 1 MG/ML 2ML VIAL ONE (08:10)
[2021-11-18] MEDS ORDERED: PHENYLEPHRINE 100MCG/ML 5ML SYR ONE (09:55)
[2021-11-18] MEDS ORDERED: PHENYLEPHRINE HCL 10 MG/ML VIAL ONE (09:55)
[2021-11-18] MEDS ORDERED: ePHEDrine sulfate 50 MG/ML SYR ONE (09:55)
--- NOTE | 2021-11-18 10:19 | Operative Report ---
Post Operative Report Pre & Post Diagnosis Operation Date: 11/18/21 08:25 Pre-Op Diagnosis: Osteoarthritis Knee Left Morbid obesity 43.1 BMI Post-Op Diagnosis: Osteoarthritis Knee Left I identified the patient and participated in the time-out.: Yes Procedure Operation Date: 11/18/21 08:25 Actual Procedures p Left Total Knee Arthroplasty(Left) utilizing [employer] journey 2 patient matched total knee arthroplasty size femur 7 tibia 6 polyeleven patella 32 oval patient had BMI 43.1 Erick Vásquez DO Surgeon Erick Vásquez DO Customer Care Professional Shmuel SIERRA Estimated Blood Loss 5 Findings Consistent with Post-Op Diagnosis Patient presents severe end-stage tricompartmental degenerative joint disease varus alignment left knee [id number] eburnated bone with moderate marginal osteophyte subchondral sclerosis and moderate to large effusion patient with obesity had a BMI of 43.1 Specimens Bone and cartilage Drains Medium bore Hemovac Anesthesia Type MAC Spinal Regional Complications none Disposition Accompanied Patient To Recovery: No Disposition: Recovery Room Indications Patient presents with severe end-stage tricompartmental degenerative joint disease morbid obesity with a BMI of 43.1 severe DJD failed attempted conservative management physical therapy anti-inflammatories relative rest activity modification corticosteroid injection viscosupplementation relative rest the above intraoperative findings were noted Description of Procedure The patient is 144 kg with a BMI of 43.1. The patient's habitus did contribute to significant technical difficulty requiring extra time. Additional help was necessary in order to position the patient safely. The use of specialized (longer, deeper) retractors and/or instruments were needed. Due to this, the procedure took 15 minutes longer than the standard total knee arthroplasty." After proper prepping and draping of the left lower extremity anterior midline incision was made over the region of the extensor extensor mechanism after meticulous hemostasis was obtained and maintained in subcutaneous tissues a medial parapatellar incision was made The patella was subluxed lateralward the medial lateral gutter were cleaned from any hypertrophic synovitis and scar tissue of the distal femoral block was placed and the distal femoral osteotomy cut was made subsequently the chamfers anterior and posterior osteotomy cuts were made utilizing the 4-in-1 block the tibia was subsequently subluxed anteriorward medial and ateral meniscal remnants were excised in their entirety remnants of the anterior and posterior cruciate ligaments were excised in their entirety excellent exposure of the proximal tibia was obtained the tibial osteotomy guide was placed on the proximal tibial osteotomy cut was made once again the knee was irrigated with copious amounts of sterile saline solution the patella was subsequently everted lateralward thickened scar tissue around the patella was removed the patella was subsequently cut utilizing a freehand technique and was drilled prepared for final preparation and placement of patella socially flexion-extension gaps were checked and the equal and symmetric trials were placed to the appropriate femoral and tibial trials with poly-spacer being placed for equal flexion and extension gaps and full range of motion including extension to 0 and flexion to 140 the trial components after having been taken to recovery range of motion was subsequently removed meticulous he mostasis was obtained and maintained subsequently a knee block injection of joint cocktail including ropivacaine 0.5% 150 mg. Bupivacaine 0.5% epinephrine 1-200,030 mL's toradol 30 mg dexamethasone 4 mg ketamine 10 mg clonidine 100 micrograms normal saline solution 30 mg was infiltrated into the soft tissues of the posterior knee medial lateral gutters and periosteal synovium special attention was paid to protect neurovascular structures at all times subsequently trial components having been removed the knee was irrigated with sterile saline solution. debris was removed the proximal tibia was subsequently prepared and was made ready for the placement of the tibial component tibial component was also cemented and tamped into position the femoral component was subsequently placed and cemented in the position the patellar component was subsequently cemented in position because hemostasis once again obtained and maintained wound having been thoroughly irrigated with debridement and debridement lavage was performed as well as a medial parapatellar incision closed with #1 Vicryl in interrupted fashion subcutaneous was closed with #2 Vicryl skin was closed with skin clips. PA-C was necessary for prepping and drapping as well as wound closure of deep fascia Sub cutaneous tissue and skin and was necessary for the case. A sterile compressive dressing was placed patient was taken to recovery in stable condition of report dictated by Fahad I attest to the content of the Intraoperative Record and any orders documented therein. Any exceptions are noted below.Due to the complex nature of the procedure, the entire surgery was performed with the operational assistance of Shmuel SIERRA The dental assistant, under direct supervision, was involved in the actual performance of all aspects of the surgical procedure including hemostasis, tissue retraction and incision, instrument management, patient positioning, and wound closure. I attest to the content of the Intraoperative Record and any orders documented therein. Any exceptions are noted below.
[2021-11-18] MEDS ORDERED: ATROPINE SULFATE 0.1 MG/ML 10ML SYR IV PRN (11:37)
[2021-11-18] MEDS ORDERED: ePHEDrine sulfate 50 MG/ML AMP IV PRN (11:37)
--- NOTE | 2021-11-18 11:38 | Anesthesiology Progress Note ---
Date of Service November 18, 2021 Anesthesia Post Procedure Vital Signs Vital Signs: Temp Pulse Pulse Resp BP Pulse Ox 11/18/21 11:30 36.8 C 73 21 138/64 99 11/18/21 11:20 72 19 141/59 H 100 11/18/21 11:10 78 19 131/62 100 11/18/21 11:04 36.7 C 81 12 140/58 L 99 11/18/21 07:15 36.9 C 82 20 147/74 H 97 Pain Intensity Bilateral Knee: Pain Intensity: 0 Transfer of Care Handoff Completed per policy Notes Mental Status: alert / awake / arousable Patient Amnestic to Procedure: Yes Nausea / Vomiting: adequately controlled Pain: adequately controlled Airway Patency, RR, SpO2: stable & adequate BP & HR: stable & adequate Hydration State: stable & adequate Neuraxial Anesthesia: was administered and sensory block is resolving Anesthetic Complications: no major complications apparent
--- NOTE | 2021-11-18 11:41 | XRay Report ---
TWO VIEWS LEFT KNEE CLINICAL HISTORY: Postoperative examination. FINDINGS: AP and crosstable lateral portable views of the left knee are obtained. A left knee arthrop lasty is in near anatomic alignment. There has been undersurface remodeling of the patella. No acute fracture is seen. There are expected postoperative changes around the knee including a surgical drai n, soft tissue edema, and subcutaneous gas. IMPRESSION: Expected postoperative changes status post left knee arthroplasty. No acute fracture is s een. ACT 112: Negative or not required by law. Electronically signed by: Moses Barakat M.D. 11/18/2021 11:40 AM
[2021-11-18] MEDS ORDERED: HYDROmorphone INJ 0.5 MG/0.5 ML SYR IV PRN (12:47)
[2021-11-18] MEDS ORDERED: ALBUTEROL HFA 8 GM INHALER INH PRN (12:47)
[2021-11-18] MEDS ORDERED: bisacodyL 10 MG SUPP PR PRN (12:47)
[2021-11-18] MEDS ORDERED: LORATADINE 10 MG TAB PO PRN (12:47)
[2021-11-18] MEDS ORDERED: ONDANSETRON INJ 2 MG/ML 2 ML VIAL IV PRN (12:47)
[2021-11-18] MEDS ORDERED: NITROGLYCERIN SL 0.4 MG/TAB TAB SL PRN (12:47)
[2021-11-18] MEDS ORDERED: NALOXONE HCL 0.4 MG/1 ML VIAL/CARP IV PRN (12:47)
[2021-11-18] MEDS ORDERED: diphenhydrAMINE 50 MG/ML VIAL IV PRN (12:47)
[2021-11-18] MEDS ORDERED: VANCOMYCIN CONSULT ACTIVE PRN (12:47)
[2021-11-18] MEDS ORDERED: MAGNESIUM HYDROXIDE SUSP 30 ML UDC PO PRN (12:47)
[2021-11-18] MEDS ORDERED: HYDROmorphone INJ 0.5 MG/0.5 ML SYR ONE (12:52)
[2021-11-18] MEDS ORDERED: PHARMACY GLYCEMIC MGMT CONSULT PRN (13:09)
[2021-11-18] MEDS: SODIUM CHLORIDE 0.9% 1000ML 1,000 ML IV SCH ×2 (13:47→23:18)
[2021-11-18] MEDS: INSULIN ASPART PER UNIT SC SCH ×4 (14:48→23:36)
--- NOTE | 2021-11-18 14:57 | Pharmacy Report ---
Pharmacy Glycemic Short Note 2 - Date of Service November 18, 2021 - Glycemic Short BSG Results (Last 24 hours): 11/18/21 11/18/21 11/18/21 07:01 11:08 13:30 POC Glucose 162 H 150 H 167 H OUTPATIENT ANTIDIABETIC REGIMEN: * NPH 80 units SQ BID * Regular insulin 18 units TID with meals * Metformin 1 g BID, canagliflozin 300 mg qAM * A1c = 7% (10/20/21) ASSESSMENT: * Reza is a 66 year old male s/p left TKA * Patient received dexamethasone 8 mg PO pre-op and an orthomix * Last dose of NPH was administered this morning (partial dose of 35 units) * Based on home usage of ~214 units/day of insulin, a 50% basal/50% bolus regimen would equal NPH 54 units and Novolog CF 5, carb ratio 4 * Will order a one time dose of NPH 80 units this evening, then dose per BSG scale starting tomorrow PLAN FOR INPATIENT GLYCEMIC CONTROL: * Hold outpatient oral diabetes medications * Basal insulin * NPH 80 units SQ x 1 with dinner * Start NPH 40-60 units SQ BID with meals on 11/19 (40 units for BSG < 120, 50 units for BSG 120-180, 60 units for BSG > 180) * Bolus insulin * NovoLog per scale ACHS or Q6hrs while NPO * Goal Range: Low 110 mg/dL - High 140 mg/dL * Correction Factor: 10 mg/dL/unit * Nutritional / Prandial insulin per carb ratio of 1 unit per 3 grams CHO consumed
--- NOTE | 2021-11-18 15:15 | Hospitalist Consultation ---
Date of Consultation November 18, 2021 Assessment & Plan (1) Arthritis of knee, left: S/P left TKA - Pain control per primary service- tiered pain control with rescue Narcan available - IVF per primary service - Transfusion needs per primary service - Diet per primary service - ABX per primary service - OT/PT per primary service - Drain managment per primary service - DVT prophy - per primary service- Currently with Xarelto 20mg PO daily as outpatient for chronic DVT- as long as primary service satisfied with hemostasis and pending drain removal continue with re-initiating in the AM (2) Sinusitis: No acute needs (3) COPD (chronic obstructive pulmonary disease): Patient only on albuterol inhaler at home- he reports symptoms controlled and not having any hospitalizations for COPD or intubations - continue (4) Hypertriglyceridemia: Continue statin and fenofibrate (5) History of DVT (deep vein thrombosis): On Xarelto- held for 3 days prior- - resume when hemostasis ensured by primary orthopaedics team (6) Diabetes mellitus type 2, controlled: Pharmacy glycemic consultation - continue with his Lyrica and Cymbalta for his diabetic neuropathy (7) Migraine: Has history of and is on Sumatriptan as abortive agent- not currently ordered- if needed page hospitalist to eval and order History of Present Illness Reason for Consultation: Medical Management Requesting Physician: Dr. Vásquez Attending Physician: Erick Vásquez, History of Present Illness 66 YOM with medical history of: DVT right leg (2016- "clot never resolved"- remains on Xarelto), COPD, HTN, HLD, Sinusitis, DMII ( on Insulin), diabetic neuropathy, iron deficiency anemia, morbid obesity, TIA. Patient is POD #0 from left TKA secondary to end stage DJD. Was performed under spinal with regional block and mask with EBL 5ml. Patient stopped his Xarelto on Wednesday [id number]. Patient was evaluated in his room postoperatively. Patient is briskly awake, he has tolerated his lunch, coffee, and water without any nausea/vomiting . He feels his pain is controlled. He is on room air. He has yet to void postoperatively- he reports trying to sit on edge of bed but couldn't go, but stated he would try again with nurses standing. Overall patient appears comfortable without complaints, no chest pain or dyspnea, foot is warm with good sensation throughout, drain with minimal output. Recs: - Xarelto for chronic DVT and current VTE prophy- He is on 20mg PO daily at home- OK to restart when hemostasis is ensured by primary team and with drain removal pending - scheduled to start in AM at 20mg - could reduce dose, however with known DVT 20mg as his CRCL is good; continue current 20mg - Pain controlled tiered appropriately with rescue Narcan available - Glycemic control pharmacy consulted by primary service- continue goal < 180 follow - Follow post op void- does have bladder scan and straight cath orders in - Medications reviewed - hold AM Zestril 10mg - follow renal function in AM- likely able to restart - Hydralazine 5mg IV prn added for SBP >180 and/or DBP >90 - Continue PPI Allergies Allergy/AdvReac Type Severity Reaction Status Date / Time azithromycin Allergy Unknown RESPIRATORY Verified 11/18/21 06:52 DISTRESS Iodinated Contrast Media Allergy Unknown SKIN COLD, Verified 11/18/21 06:52 FAINTING oxycodone Allergy Unknown chest pain Verified 11/18/21 06:52 Penicillins Allergy Unknown HYPERTENSION, Verified 11/18/21 06:52 SHAKING,HIVES niacin AdvReac Unknown NOSE BLEED Verified 11/18/21 06:52 nortriptyline AdvReac Unknown STOMACH Verified 11/18/21 06:52 PAINS, BLOODY STOOLS Home Medications Medication Instructions Recorded Confirmed Type allopurinol 300 mg tablet 300 mg PO QAM 08/21/18 11/18/21 History atenolol 50 mg tablet 50 mg PO QAM 08/21/18 11/18/21 History atorvastatin 40 mg tablet 40 mg PO QPM 08/21/18 11/18/21 History canagliflozin 300 mg tablet 300 mg PO QAM 08/21/18 11/18/21 History cyanocobalamin (vitamin B-12) 1,000 mcg PO QAM 08/21/18 11/18/21 History 1,000 mcg tablet fenofibrate 160 mg tablet 160 mg PO QAM 08/21/18 11/18/21 History lisinopril 20 mg tablet 20 mg PO QPM 08/21/18 11/18/21 History omega 0-eqe-dee-fish oil 1,000 mg 1 cap PO BID 08/21/18 11/18/21 History (120 mg-180 mg) capsule (Fish Oil) rivaroxaban 20 mg tablet (Xarelto) 20 mg PO QAM 08/21/18 11/18/21 History hydrocodone 10 mg-acetaminophen 0.5 tab PO BID PRN tab 02/21/19 11/18/21 History 325 mg tablet (Sycamore) loratadine 10 mg tablet (Claritin) 10 mg PO DAILY PRN #30 tab 08/17/19 11/18/21 Rx nitroglycerin 0.4 mg sublingual 0.4 mg SUBLINGUAL UD PRN 03/20/20 11/18/21 History tablet (Nitrostat) metformin 1,000 mg tablet 1,000 mg PO BID #180 tab 02/04/21 11/18/21 Rx pantoprazole 40 mg tablet,delayed 40 mg PO BID tab 02/25/21 11/18/21 History release BD Ultra-Fine Short Pen Needle 31 #500 ea NS 04/09/21 09/08/21 Rx gauge x 5/16" (pen needle, diabetic) pregabalin 300 mg capsule (Lyrica) 300 mg PO BID 90 Days #180 cap 06/26/21 11/18/21 Rx flash glucose sensor (FreeStyle #2 ea 07/22/21 09/08/21 Rx Moe 2 Sensor) albuterol sulfate 90 mcg/actuation 2 inh INHALATION Q4H PRN 10/15/21 11/18/21 History aerosol inhaler clindamycin HCl 300 mg capsule 600 mg PO UD PRN 10/15/21 11/18/21 History duloxetine 60 mg capsule,delayed 60 mg PO QPM 10/15/21 11/18/21 History release insulin NPH isoph U-100 human 100 80 unit SUBCUT BID 10/15/21 11/18/21 History unit/mL (3 mL) subcutaneous pen (Novolin N Flexpen) insulin regular human 100 unit/mL 18 unit SUBCUT TIDM MDD 80 units 10/15/21 11/18/21 History (3 mL) subcutaneous pen (Novolin R Flexpen) acetaminophen 650 mg 650 mg PO Q12H PRN 11/18/21 11/18/21 History tablet,extended release docusate sodium 100 mg capsule 100 mg PO BID 10 Days #20 cap 11/18/21 Rx hydrocodone 5 mg-acetaminophen 325 1 - 2 tab PO Q6H PRN #30 tab 11/18/21 Rx mg tablet sulfamethoxazole 800 1 tab PO Q12H 7 Days #14 tab 11/18/21 Rx mg-trimethoprim 160 mg tablet (Bactrim DS) Patient History Medical History (Updated 11/18/21 @ 16:16 by REAL Weaver) COPD (chronic obstructive pulmonary disease) Stable Diabetes IDDM DVT (deep venous thrombosis) RLE (2015) Gout HX Hearing loss Hyperlipidemia Hypertension controlled, stable per pt Neuropathy Pancreatic cyst Under surveillance Patient states that this is the reason for PPI Post herpetic neuralgia L eye-drops Sinusitis TIA (transient ischemic attack) 2002 in setting of severe hyperglycemia per pt Surgical History History of arthroscopy of knee L History of cardiac cath 10 YR AGO > NO STENTS History of colonoscopy History of endoscopy History of knee replacement RIGHT Family History Mother Diabetes Stroke Hypertension Father Hypertension Other Family history non-contributory Social History Smoking Status: Former smoker Do You Dip or Chew Tobacco: No; Hx Alcohol Use: Yes Alcohol type: beer Hx Substance Use: No Preferred Language: Nepali Communication Ability: Effective Communication Ability Comment: PT [place], HELPS WITH PHONE INTERVIEW SOME Child Care Assistant Required: No Beliefs That Will Affect Care: None marital status: Current Living Situation: Spouse current occupational status: retired and disabled Other Information That Helps Us Care for You: No Feels Safe at Home: Yes Assistive Devices: Cane and Glasses Assistive Devices Comment: CANE PRN Review of Systems Review of Systems: REVIEW OF SYSTEMS: Constitutional: No fever, sweats or chills Eyes: (+) wears glasses, No diplopia, no worsening or blurred vision ENT: (+) difficulty hearing, no trouble swallowing Respiratory: No cough, sputum, dyspnea at rest or on exertion Cardiovascular: No chest pain, tightness or palpitations Abdomen: No pain, nausea, vomiting, diarrhea or constipation Musculoskeletal: (+) left knee pain, NO calf pain, swelling Neurologic: No weakness, numbness/tingling, or balance problems Psychiatric: No anxiety or depression Skin: No rash or itch Physical Exam Physical Exam: PHYSICAL EXAM: General: morbidly obese, awake, alert, no apparent distress Head: Normocephalic, atraumatic ENT: PERRL, EOMI, no pharyngeal exudate, mucous membranes moist Neuro: AAO x 3, speech clear and appropriate, strength intact bilaterally 5/5, sensation intact and equal all extremities and dermatomes Chest: equal rise and fall of the chest, no accessory muscle use, no heaves or thrills, decreased in bases likely secondary to body habitus- on room air Cardiac: Regular rate and rhythm, telemetry reviewed, skin warm dry, cap refill <3 seconds, peripheral pulses +2 no JVD, no murmur, no edema GI: NABS x 4 quadrants, soft, nontender to palpation, no rebound, guarding or tenderness : post op void pending Extremities: Normal inspection, no peripheral edema or erythema, calfs nontender to palpation Psych: Normal mood and affect Skin: no rash or erythema Results & Data Results & Data ([facility]) Vital Signs (Past 12 Hours) Vital Signs Temp Pulse Pulse Resp BP BP Pulse Ox 11/18/21 14:25 37.4 C 86 16 153/70 H 96 11/18/21 13:52 37.0 C 84 20 146/72 H 98 11/18/21 13:25 37.1 C 86 20 147/71 H 98 11/18/21 13:15 83 20 134/66 95 11/18/21 13:00 36.3 C L 86 20 153/71 H 95 11/18/21 12:45 83 18 154/70 H 96 11/18/21 12:30 36.8 C 79 20 141/62 H 95 11/18/21 12:15 36.8 C 76 20 145/62 H 94 11/18/21 12:00 36.8 C 77 20 144/63 H 95 11/18/21 11:50 36.8 C 78 17 137/65 96 11/18/21 11:40 36.8 C 77 21 129/63 97 11/18/21 11:30 36.8 C 73 21 138/64 99 11/18/21 11:20 72 19 141/59 H 100 11/18/21 11:10 78 19 131/62 100 11/18/21 11:04 36.7 C 81 12 140/58 L 99 05/17/22 07:15 36.9 C 82 20 147/74 H 97 Laboratory Results Abnormal lab results 11/18/21 11/18/21 11/18/21 Range/Units 06:56 07:01 11:08 RBC 4.39 L (4.7-6.1) M/uL Hgb 11.0 L (14.0-18.0) g/dL Hct 35.9 L (42-52) % MCHC 30.6 L (32-36) g/dL RDW Std Deviation 53.6 H (36.4-46.3) fL RDW Coeff of Donell 18.0 H (11.5-14.5) % [place] # (Auto) 0.73 H (0.11-0.59) K/uL Immature Gran # (Auto) 0.03 H (0.00-0.02) K/uL POC Glucose 162 H 150 H (70-99) mg/dl 11/18/21 Range/Units 13:30 RBC (4.7-6.1) M/uL Hgb (14.0-18.0) g/dL Hct (42-52) % MCHC (32-36) g/dL RDW Std Deviation (36.4-46.3) fL RDW Coeff of Donell (11.5-14.5) % [place] # (Auto) (0.11-0.59) K/uL Immature Gran # (Auto) (0.00-0.02) K/uL POC Glucose 167 H (70-99) mg/dl Diagnostic Findings Knee X-Ray 11/18/21 11:17 TWO VIEWS LEFT KNEE CLINICAL HISTORY: Postoperative examination. FINDINGS: AP and crosstable lateral portable views of the left knee are obtained. A left knee arthroplasty is in near anatomic alignment. There has been undersurface remodeling of the patella. No acute fracture is seen. There are expected postoperative changes around the knee including a surgical drain, soft tissue edema, and subcutaneous gas. IMPRESSION: Expected postoperative changes status post left knee arthroplasty. No acute fracture is seen. ACT 112: Negative or not required by law. Electronically signed by: Moses Barakat M.D. 11/18/2021 11:40 AM Medications Administered Home Medications allopurinol 300 mg tablet 300 mg PO QAM 08/21/18 [History Confirmed 11/18/21] atenolol 50 mg tablet 50 mg PO QAM 08/21/18 [History Confirmed 11/18/21] atorvastatin 40 mg tablet 40 mg PO QPM 08/21/18 [History Confirmed 11/18/21] canagliflozin 300 mg tablet 300 mg PO QAM 08/21/18 [History Confirmed 11/18/21] cyanocobalamin (vitamin B-12) 1,000 mcg tablet 1,000 mcg PO QAM 08/21/18 [History Confirmed 11/18/21] fenofibrate 160 mg tablet 160 mg PO QAM 08/21/18 [History Confirmed 11/18/21] lisinopril 20 mg tablet 20 mg PO QPM 08/21/18 [History Confirmed 11/18/21] omega 0-qku-cos-fish oil 1,000 mg (120 mg-180 mg) capsule (Fish Oil) 1 cap PO BID 08/21/18 [History Confirmed 11/18/21] rivaroxaban 20 mg tablet (Xarelto) 20 mg PO QAM 08/21/18 [History Confirmed 11/18/21] hydrocodone 10 mg-acetaminophen 325 mg tablet (Sycamore) 0.5 tab PO BID PRN tab 02/21/19 [History Confirmed 11/18/21] loratadine 10 mg tablet (Claritin) 10 mg PO DAILY PRN #30 tab 08/17/19 [Rx Confirmed 11/18/21] nitroglycerin 0.4 mg sublingual tablet (Nitrostat) 0.4 mg SUBLINGUAL UD PRN 03/20/20 [History Confirmed 11/18/21] metformin 1,000 mg tablet 1,000 mg PO BID #180 tab 02/04/21 [Rx Confirmed 11/18/21] pantoprazole 40 mg tablet,delayed release 40 mg PO BID tab 02/25/21 [History Confirmed 11/18/21] BD Ultra-Fine Short Pen Needle 31 gauge x 5/16" (pen needle, diabetic) #500 ea NS 04/09/21 [Rx Confirmed 09/08/21] pregabalin 300 mg capsule (Lyrica) 300 mg PO BID 90 Days #180 cap 06/26/21 [Rx Confirmed 11/18/21] flash glucose sensor (FreeStyle Moe 2 Sensor) #2 ea 07/22/21 [Rx Confirmed 09/08/21] albuterol sulfate 90 mcg/actuation aerosol inhaler 2 inh INHALATION Q4H PRN 10/15/21 [History Confirmed 11/18/21] clindamycin HCl 300 mg capsule 600 mg PO UD PRN 10/15/21 [History Confirmed 11/18/21] duloxetine 60 mg capsule,delayed release 60 mg PO QPM 10/15/21 [History Confirmed 11/18/21] insulin NPH isoph U-100 human 100 unit/mL (3 mL) subcutaneous pen (Novolin N Flexpen) 80 unit SUBCUT BID 10/15/21 [History Confirmed 11/18/21] insulin regular human 100 unit/mL (3 mL) subcutaneous pen (Novolin R Flexpen) 18 unit SUBCUT TIDM MDD 80 units 10/15/21 [History Confirmed 11/18/21] acetaminophen 650 mg tablet,extended release 650 mg PO Q12H PRN 11/18/21 [History Confirmed 11/18/21] docusate sodium 100 mg capsule 100 mg PO BID 10 Days #20 cap 11/18/21 [Rx] hydrocodone 5 mg-acetaminophen 325 mg tablet 1 - 2 tab PO Q6H PRN #30 tab 11/18/21 [Rx] sulfamethoxazole 800 mg-trimethoprim 160 mg tablet (Bactrim DS) 1 tab PO Q12H 7 Days #14 tab 11/18/21 [Rx] Active Medications Hydrocodone Bitart/Acetaminophen (Hydrocodone/Acetamophen 5/325mg Tab) 1 - 2 tab PO Q4H PRN PRN Reason: Pain or Pre PT Stop: 12/02/21 12:46 Albuterol (Albuterol Hfa 8 Gm Inhaler) 2 puffs INH Q4H PRN PRN Reason: COPD Stop: 12/18/21 12:46 Allopurinol (Allopurinol 300 Mg Tab) 300 mg PO QAM [facility] Stop: 12/19/21 08:59 Atenolol (Atenolol 50 Mg Tablet) 50 mg PO QAM [facility] Stop: 12/19/21 08:59 Atorvastatin Calcium (Atorvastatin 40 Mg Tab) 40 mg PO QPM [facility] Stop: 12/18/21 20:59 Atropine Sulfate (Atropine Sulfate 0.1 Mg/Ml 10ml Syr) 0.5 mg IV Q1M PRN PRN Reason: PACU Use-HR<40 &/or Bradycardi Stop: 11/18/21 19:37 Bisacodyl (Bisacodyl 10 Mg Supp) 10 mg [place] DAILY PRN PRN Reason: Constipation Stop: 12/18/21 12:46 Cyanocobalamin (Cyanocobalamin (B-12) 500 Mcg Tablet) 1,000 mcg PO QAM [facility] Stop: 12/19/21 08:59 Diphenhydramine HCl (Diphenhydramine 50 Mg/Ml Vial) 25 mg IV Q8H PRN PRN Reason: Itching Stop: 12/18/21 12:46 Docusate Sodium (Docusate Sodium 100 Mg Cap) 100 mg PO BID [facility] Stop: 12/18/21 20:59 Duloxetine HCl (Duloxetine Hcl 60 Mg Cap) 60 mg PO QPM [facility] Stop: 12/18/21 20:59 Ephedrine Sulfate (Ephedrine Sulfate 50 Mg/Ml Amp) 5 mg IV Q5M PRN PRN Reason: PACU Use Only-SBP<90 mmHg Stop: 11/18/21 19:37 Fenofibrate (Fenofibrate Nanocrystallized 145 Mg Tablet) 145 mg PO QAM [facility] Stop: 12/19/21 08:59 Hydralazine HCl (Hydralazine Hcl 20 Mg/Ml Vial) 5 mg IV Q4 PRN PRN Reason: SBP>180 and/or DBP>90 Stop: 12/18/21 16:02 Hydromorphone HCl (Hydromorphone Inj 0.5 Mg/0.5 Ml Syr) 0.5 mg IV Q4H PRN PRN Reason: Pain or Pre PT Stop: 12/02/21 12:46 Last Admin: 11/18/21 12:53 Dose: 0.5 mg Documented by: Sodium Chloride (Nss 1000ml) 1,000 mls @ 100 mls/hr IV .Q10H [facility] Stop: 11/19/21 06:00 Last Admin: 11/18/21 13:47 Dose: 100 mls/hr Documented by: Vancomycin HCl 2,000 mg/ (Sodium Chloride) 540 mls @ 200 mls/hr IV Q12H [facility] Stop: 11/18/21 23:56 Insulin Aspart (Insulin Aspart Per Unit) 0 units SC ACHS [facility] Stop: 12/18/21 14:14 Last Admin: 11/18/21 14:48 Dose: 12 units Documented by: Insulin Aspart (Insulin Aspart Per Unit) 0 units SC 0000,[id number] [facility] Stop: 11/19/21 04:01 Insulin Human NPH (Insulin Human Nph) 80 units SC QDD ONE Stop: 11/18/21 16:31 Insulin Human NPH (Insulin Human Nph) 0 units SC BID [facility]; Protocol Stop: 12/19/21 08:59 Lisinopril (Lisinopril 20 Mg Tab) 20 mg PO QPM [facility] Stop: 12/18/21 20:59 Loratadine (Loratadine 10 Mg Tab) 10 mg PO DAILY PRN PRN Reason: allergy symptoms Stop: 12/18/21 12:46 Magnesium Hydroxide (Magnesium Hydroxide Susp 30 Ml Udc) 30 ml PO Q6H PRN PRN Reason: Constipation Stop: 12/18/21 12:46 Miscellaneous Information (Pharmacy Glycemic Mgmt Consult) 1 ea N/A UD PRN PRN Reason: Consult Stop: 12/18/21 13:08 Multivitamins (Multivitamin Tab) 1 tab PO QAM [facility] Stop: 12/19/21 08:59 Naloxone HCl (Naloxone Hcl 0.4 Mg/1 Ml Vial/Carp) 0.1 mg IV Q5M PRN PRN Reason: Oversedation/Resp Depression Stop: 12/18/21 12:46 Nitroglycerin (Nitroglycerin Sl 0.4 Mg/Tab Tab) 0.4 mg SL UD PRN PRN Reason: Chest Pain Stop: 12/18/21 12:46 Ondansetron HCl (Ondansetron Inj 2 Mg/Ml 2 Ml Vial) 4 mg IV Q6H PRN PRN Reason: Nausea And Vomiting Stop: 12/18/21 12:46 Pantoprazole Sodium (Pantoprazole 40 Mg Tab) 40 mg PO BID [facility] Stop: 12/18/21 20:59 Pregabalin (Pregabalin 150 Mg Cap) 300 mg PO BID [facility] Stop: 12/18/21 20:59 Rivaroxaban (Rivaroxaban 20 Mg Tab) 20 mg PO QAM [facility] Stop: 12/19/21 08:59 Sennosides (Senna 8.6 Mg Tab) 17.2 mg PO HS [facility] Stop: 12/18/21 20:59 PG Care Time/CCT Total # of Minutes Spent Total Time Spent with Patient: Total time spent is greater than 50% in coordination of care (as documented) at patient's floor/unit and/or counseling patient: Coding Level of Care Code 79686 Office/OBS Consult Lvl 3 Diagnoses Sinusitis J32.9 COPD (chronic obstructive pulmonary disease) J44.9 Hypertriglyceridemia E78.1 History of DVT (deep vein thrombosis) Z86.718 Diabetes mellitus type 2, controlled E11.9 Migraine G43.909 Arthritis of knee, left M17.12
[2021-11-18] MEDS ORDERED: hydrALAZINE HCL 20 MG/ML VIAL IV PRN (16:03)
[2021-11-18] MEDS ORDERED: INSULIN HUMAN NPH SC ONE (16:30)
[2021-11-18] MEDS: HYDROCODONE/ACETAMOPHEN 5/325MG TAB PO PRN ×2 (17:50→23:37)
[2021-11-18] MEDS: PREGABALIN 150 MG CAP PO SCH (20:18)
[2021-11-18] MEDS: DOCUSATE SODIUM 100 MG CAP PO SCH (20:19)
[2021-11-18] MEDS: PANTOprazole 40 MG TAB PO SCH (20:21)
[2021-11-18] MEDS ORDERED: metFORMIN HCL 500 MG TAB PO SCH (21:00)
[2021-11-18] MEDS ORDERED: lisinopril 20 MG TAB PO SCH (21:00)
[2021-11-18] MEDS ORDERED: DULoxetine HCL 60 MG CAP PO SCH (21:00)
[2021-11-18] MEDS ORDERED: SENNA 8.6 MG TAB PO SCH (21:00)
[2021-11-18] MEDS ORDERED: ATORVASTATIN 40 MG TAB PO SCH (21:00)
[2021-11-18] MEDS ORDERED: VANCOMYCIN HCL 2,000 MG in SODIUM CHLORIDE 0.9% 500 ML IV SCH (21:15)
[2021-11-19] MEDS: INSULIN ASPART PER UNIT SC SCH ×3 (04:13→12:30)
[2021-11-19] MEDS: HYDROCODONE/ACETAMOPHEN 5/325MG TAB PO PRN ×2 (05:46→10:06)
[2021-11-19 06:19] LABS: Hematocrit (blood only) 31.9 % (42-52); Hemoglobin 9.7 g/dL (14.0-18.0); Mean Corpuscular Hemoglobin 24.4 pg (25-34); Mean Corpuscular Hgb Conc 30.4 g/dL (32-36); Mean Corpuscular Volume 80.4 fL (80-100); Platelet Count 292 K/uL (130-400); RDW Coefficient of Variation 17.9 % (11.5-14.5); RDW Standard Deviation 52.4 fL (36.4-46.3); Red Blood Count 3.97 M/uL (4.7-6.1); White Blood Count 13.88 K/uL (4.8-10.8)
[2021-11-19 07:00] LABS: BUN Creatinine Ratio 17.4 (10-20); Calcium 8.7 mg/dl (8.5-10.1); Creatinine Clr Calc Pharmacy 153.1 ml/min; Est GFR (African American) 113.9 ml/min; Est GFR (Non-African American) 98.2 ml/min; Potassium 4.1 mmol/L (3.5-5.1)
--- NOTE | 2021-11-19 07:17 | Orthopedic Progress Note ---
Date of Service November 19, 2021 Assessment & Plan (1) History of total left knee replacement: Plan: POD #1 s/p left TKA pt/ot dvt proph with [facility]/SCD/ASA plan for d/c home with home health PT Admission and Anticipated Discharge Date Admission Date: November 18, 2021 Subjective POD #1 s/p Left TKA Review of Systems Constitutional: no fever, no chills and no sweats Respiratory: no cough and no dyspnea Cardiovascular: no chest pain and no dyspnea Gastrointestinal: no abdominal pain, no nausea and no vomiting Physical Exam Physical Exam: Vital Signs Temp 36.4 C L 11/19/21 03:00 Pulse 76 11/19/21 03:00 Resp 20 11/19/21 03:00 BP 133/67 11/19/21 03:00 Pulse Ox 96 11/19/21 03:00 Intake & Output 11/18/21 11/19/21 11/19/21 18:59 06:59 18:59 Intake Total 2540 / 5955 3415 / 5955 Output Total 531 / 1531 1000 / 1531 Balance 2008 / 44 Weight 144.1 kg Intake: IV 1740 / 3280 1540 / 3280 Lactated Ringe r's 1,000 ml @ 15 1000 / 1000 mls/hr IV .Q24 H [facility] Rx#: [id number] Sodium Chlorid e 0.9% 1000ML 1, 1000 / 1000 000 ml @ 100 m ls/hr IV .Q10H [facility] Rx#:[id number] Tranexamic Aci d / 0.7% NaCl 1, 200 / 200 000 mg In 100 ml @ 600 mls/hr IV TODAY@0600 [facility] Rx#:[id number] Vancomycin HCl 2,000 mg In 540 / 1080 540 / 1080 Sodium Chlorid e 0.9% 500 ml @ 200 mls/hr IV Q12H [facility] Rx#: [id number] IV Perioperative 800 / 800 Oral 1875 / 1875 Output: Urine 500 / 1050 550 / 1050 Estimated Blood Loss 5 / 5 Drain Output 450 / 476 Left Knee Hemo vac #1 450 / 476 Other: # Unmeasured Voi ds 1 Weight Measureme nt Method Standing Scale Musculoskeletal: Left Leg: NVDI, calf SNT, negative maddi sign. DP palpable, able to wiggle toes/ankle movement without difficulty. dressing clean dry and intact. Results & Data ([facility]) Vital Signs (Past 12 Hours) Vital Signs Temp Pulse Resp BP Pulse Ox 11/19/21 03:00 36.4 C L 76 20 133/67 96 11/18/21 22:30 36.6 C 74 22 139/68 96 11/18/21 19:30 36.4 C L 79 20 135/69 97 Laboratory Results Laboratory Results WBC 13.88 K/uL (4.8-10.8) H 11/19/21 06:04 RBC 3.97 M/uL (4.7-6.1) L 11/19/21 06:04 Hgb 9.7 g/dL (14.0-18.0) L 11/19/21 06:04 Hct 31.9 % (42-52) L 11/19/21 06:04 MCV 80.4 fL (80-100) 11/19/21 06:04 MCH 24.4 pg (25-34) L 11/19/21 06:04 MCHC 30.4 g/dL (32-36) L 11/19/21 06:04 RDW Std Deviation 52.4 fL (36.4-46.3) H 11/19/21 06:04 RDW Coeff of Donell 17.9 % (11.5-14.5) H 11/19/21 06:04 Plt Count 292 K/uL (130-400) 11/19/21 06:04 MPV 10.0 fL (7.4-10.4) 11/19/21 06:04 Immature Gran % (Auto) 0.3 % 11/18/21 06:56 Neut % (Auto) 58.4 % 11/18/21 06:56 Lymph % (Auto) 26.5 % 11/18/21 06:56 [place] % (Auto) 8.3 % 11/18/21 06:56 Eos % (Auto) 5.5 % 11/18/21 06:56 Baso % (Auto) 1.0 % 11/18/21 06:56 Neut # (Auto) 5.10 K/uL (1.4-6.5) 11/18/21 06:56 Lymph # (Auto) 2.32 K/uL (1.2-3.4) 11/18/21 06:56 [place] # (Auto) 0.73 K/uL (0.11-0.59) H 11/18/21 06:56 Eos # (Auto) 0.48 K/uL (0-0.5) 11/18/21 06:56 Baso # (Auto) 0.09 K/uL (0-0.2) 11/18/21 06:56 Immature Gran # (Auto) 0.03 K/uL (0.00-0.02) H 11/18/21 06:56 Sodium 136 mmol/L (136-145) 11/19/21 06:04 Potassium 4.1 mmol/L (3.5-5.1) 11/19/21 06:04 Chloride 105 mmol/L (98-107) 11/19/21 06:04 Carbon Dioxide 24 mmol/L (21-32) 11/19/21 06:04 Anion Gap 7 (3-11) 11/19/21 06:04 BUN 12 mg/dl (6-23) 11/19/21 06:04 Creatinine 0.69 mg/dl (0.6-1.4) 11/19/21 06:04 Est Cr Clr Drug Dosing 153.1 ml/min 11/19/21 06:04 Est GFR ( Amer) 113.9 ml/min 11/19/21 06:04 Est GFR (Non-Af Amer) 98.2 ml/min 11/19/21 06:04 BUN/Creatinine Ratio 17.4 (10-20) 11/19/21 06:04 Glucose 150 mg/dl (70-99(Fasting)) H 11/19/21 06:04 POC Glucose 183 mg/dl (70-99) H 11/19/21 04:10 Calcium 8.7 mg/dl (8.5-10.1) 11/19/21 06:04 SARS-CoV-2, RNA, NAAT NEGATIVE (NEGATIVE) 11/18/21 07:02 Impressions Knee X-Ray 11/18/21 11:17 TWO VIEWS LEFT KNEE CLINICAL HISTORY: Postoperative examination. FINDINGS: AP and crosstable lateral portable views of the left knee are obtained. A left knee arthroplasty is in near anatomic alignment. There has been undersurface remodeling of the patella. No acute fracture is seen. There are expected postoperative changes around the knee including a surgical drain, soft tissue edema, and subcutaneous gas. IMPRESSION: Expected postoperative changes status post left knee arthroplasty. No acute fracture is seen. ACT 112: Negative or not required by law. Electronically signed by: Moses Barakat M.D. 11/18/2021 11:40 AM
[2021-11-19] MEDS: PANTOprazole 40 MG TAB PO SCH (08:57)
[2021-11-19] MEDS ORDERED: MULTIVITAMIN TAB PO SCH (09:00)
[2021-11-19] MEDS ORDERED: RIVAROXABAN 20 MG TAB PO SCH (09:00)
[2021-11-19] MEDS ORDERED: ATENOLOL 50 MG TABLET PO SCH (09:00)
[2021-11-19] MEDS ORDERED: FENOFIBRATE NANOCRYSTALLIZED 145 MG TABLET PO SCH (09:00)
[2021-11-19] MEDS ORDERED: CANAGLIFLOZIN 300 MG PO SCH (09:00)
[2021-11-19] MEDS ORDERED: CYANOCOBALAMIN (B-12) 500 MCG TABLET PO SCH (09:00)
[2021-11-19] MEDS ORDERED: allopurinoL 300 MG TAB PO SCH (09:00)
[2021-11-19] MEDS ORDERED: INSULIN HUMAN NPH SC SCH (09:00)
[2021-11-19] MEDS: DOCUSATE SODIUM 100 MG CAP PO SCH (09:03)
[2021-11-19] MEDS: PREGABALIN 150 MG CAP PO SCH (09:04)
--- NOTE | 2021-11-19 09:54 | Hospitalist Progress Note ---
Date of Service November 19, 2021 Assessment & Plan (1) Arthritis of knee, left: Plan: S/P left TKA POD#1 Pain control per primary service- tiered pain control with rescue Narcan available Utilize incentive spirometer every hour while awake for atelectasis/pneumonia prevention PT/OT eval, anticipate home with home health Hemovac management per orthopedics DVT prophy covered with resumption of Xarelto (2) Sinusitis: Plan: No acute needs (3) COPD (chronic obstructive pulmonary disease): Plan: Patient only on albuterol inhaler at home- he reports symptoms controlled and not having any hospitalizations for COPD or intubations (4) Hypertriglyceridemia: Plan: Continue statin and fenofibrate (5) History of DVT (deep vein thrombosis): Plan: On Xarelto which has been ordered to restart today (6) Diabetes mellitus type 2, controlled: Plan: Pharmacy consulted for glycemic management Continue with his Lyrica and Cymbalta for his diabetic neuropathy (7) Migraine: Plan: Has history of and is on Sumatriptan as abortive agent- not currently ordered- if needed page hospitalist to eval and order Plan: No further recommendations at this time, patient is doing well postoperatively. Medicine will sign off, but continue to do daily chart checks and follow peripherally. Please notify hospitalist of any acute needs should they arise. Thank you for allowing us to participate in the care of your patient. Plan will be discussed with Dr. Edward Ray. Admission and Anticipated Discharge Date Admission Date: November 18, 2021 Subjective Patient seen on daily rounds this morning. He is POD #1 s/p Left TKA by Dr. Vásquez. He reports knee pain is adequately controlled postoperatively, denies chest pain, shortness of breath, N/V/D, headache, or symptoms. Review of Systems Review of Systems: All systems reviewed and are unremarkable except as noted in HPI and below. Denies fever, chills, fatigue, headache, nasal congestion, sore throat, cough, chest pain, shortness of breath, palpitations, orthopnea, PND, abdominal pain, n/v/d, constipation, dysuria, hematuria, frequency, back pain, easy bruising or bleeding, skin lesions or rashes. Physical Exam Physical Exam: GENERAL: 66 yo well-developed, obese WM. NAD. LUNGS: Clear to auscultation bilaterally. No W/R/R. CARDIOVASCULAR: Regular rate and rhythm. ABDOMEN: Soft, non-tender and non-distended. BS normoactive x 4 quad. EXTREMITIES: No edema. Non-tender. Peripheral pulses +2/4. L knee with sariah dressing and wrapped in natasha. Hemovac present. Calves nontender. Neg maddi's on L. NEUROLOGIC: A&O x3. PSYCHIATRIC: Cooperative. Appropriate mood and affect. SKIN: Warm, dry, intact. No rashes or lesions. Results & Data Results & Data ([facility] [place]) Vital Signs (Past 12 Hours) Vital Signs Temp Pulse Resp BP Pulse Ox 11/19/21 08:54 78 129/61 11/19/21 07:30 36.9 C 72 18 115/66 96 11/19/21 03:00 36.4 C L 76 20 133/67 96 11/18/21 22:30 36.6 C 74 22 139/68 96 Laboratory Results 11/19/21 06:04 11/19/21 06:04 PG Care Time/CCT Total # of Minutes Spent Total Time Spent with Patient: Total time spent is greater than 50% in coordination of care (as documented) at patient's floor/unit and/or counseling patient: Coding Level of Care Code 02349 Subseq Hosp Care Lvl 2 Diagnoses Arthritis of knee, left M17.12 Sinusitis J32.9 COPD (chronic obstructive pulmonary disease) J44.9 Hypertriglyceridemia E78.1 History of DVT (deep vein thrombosis) Z86.718 Diabetes mellitus type 2, controlled E11.9 Migraine G43.909
== END 2021-11-19 13:50 | disposition home health service (06) ==
LOC: ASU 06:25 → PACUINP 06:25 → 3E 13:25